=== PATIENT | female | born 1955 | race Caucasian/White ===

== ENCOUNTER 2019-08-24 22:13 | Inpatient (IN) | payer MEDICARE, MEDICAID ==
[2019-08-25] MEDS ORDERED: INSULIN LISPRO SLIDING SCALE 100 UNITS/ML UNIT SUBQ SCH (07:30)
[2019-08-25] MEDS ORDERED: MELOXICAM 15 MG PO PRN (07:33)
[2019-08-25] MEDS ORDERED: Maalox 30 mL Cup PO PRN (07:33)
--- NOTE | 2019-08-25 07:57 | History and Physical ---
History of Present Illness - HPI Chief Complaint: psychosis HPI: 64 y/o female who presents to [facility] from [facility] for medical clearance. Patient is a resident from [facility] and the nursing staff noted increased agitation and a change in the patient's behavior. Patient was found to have a UTI and Acute Bronchitis when evaluated at [facility] ER and was prescribed oral antibiotics. No labwork of Chest Xray accompanied the chart. Patient has a history of DM2, diabetic neuropathy, legally blind, morbid obesity, trigeminal neuralgia, muscle weakness, major depression, GERD. Patient was subsequently admitted for further evaluation and treatment. Vital Signs: Last Vital Signs Temp 97.8 F 08/25/19 07:15 Pulse 93 08/25/19 07:15 Resp 20 08/25/19 07:15 BP 112/89 08/25/19 07:15 Pulse Ox 96 08/25/19 07:15 Past Medical History Cardiovascular: Report: HTN, Hyperlipidemia Pulmonary: Report: Asthma, Bronchitis, Other (allergies) SECURITY PUBLIC SAFETY OFFICER: Report: Peripheral neuropathy, Other (trigeminal neuralgia) GI: Report: Constipation, GERD Psych: Report: Psychosis Musculoskeletal: Report: Osteoarthritis, Other (muscle spasm) Rheumatologic: Report: No pertinent Hx Infectious Disease: Report: No Pertinent Hx Renal/: Report: Urinary Incontinence Endocrine: Report: Diabetes Dermatology: Report: No Pertinent Hx - Past Surgical History Past Surgical History: No pertinent Hx Family Medical History - Family Member Mother History Unknown: Yes Living Status: Sister History Unknown: Yes Ethnicity: Non- Living Status: Still Living Hx Family Cancer: No Hx Family Coronary Artery Disease: No Hx Family Congestive Heart Failure: No Hx Family Hypertension: No Hx Family Stroke: No Hx Family Diabetes: Yes Hx Family Seizures: No Hx Family Dementia: No Hx Family AIDS: No Hx Family HIV: No Hx Family COPD: No Hx Family Hepatitis: No Hx Family Psychiatric Problems: No Hx Family Tuberculosis: No Social History Smoke: No Alcohol: None Drugs: None Lives: Fpc - Medications Home Medications: Home Medication Medication Instructions Recorded Type Atorvastatin Calcium [Lipitor] 10 mg PO HS 07/20/14 History Mag Hydrox/Aluminum Hyd/Simeth 30 ml PO Q6HR PRN 03/27/16 History [Almacone Suspension] Pantoprazole [Protonix] 40 mg PO QDAC #0 ect 03/31/16 Rx Pioglitazone HCl [Actos] 30 mg PO DAILY #0 tab 03/31/16 Rx Sucralfate [Carafate] 1 gm PO QID #0 tab 03/31/16 Rx amLODIPine Besylate [Norvasc] 5 mg PO DAILY #0 tab 03/31/16 Rx Acetaminophen [Tylenol] 650 mg PO Q6HR PRN 08/25/19 History Acetaminophen [Tylenol] 650 mg PO Q6HR PRN 08/25/19 History Carbamazepine [Tegretol Xr] 100 mg PO BID 08/25/19 History Docusate Sodium [Colace] 200 mg PO BID 08/25/19 History Escitalopram Oxalate [Lexapro] 5 mg PO DAILY 08/25/19 History Fluticasone/Salmeterol [Advair 1 puff IH DAILY 08/25/19 History 250-50 Diskus] Gabapentin [Neurontin] 800 mg PO TID 08/25/19 History Gentamicin 0.1% Ointment 0.5 inch EACH EYE BID 08/25/19 History [Gentamicin 0.1%] Guaifenesin DM [Robitussin DM] 5 ml PO QID PRN 08/25/19 History Insulin Detemir [Levemir Insulin] 10 units SUBQ HS 08/25/19 History Insulin Lispro Sliding Scale See Protocol SUBQ ACHS 08/25/19 History [humaLOG INSULIN SLIDING SCALE] Loratadine 10 mg PO DAILY 08/25/19 History Meloxicam [Mobic] 15 mg PO DAILY PRN 08/25/19 History Montelukast [Singulair] 10 mg PO HS 08/25/19 History Pectin [Throat Drops] 1 lozenge PO Q2HR PRN 08/25/19 History Polyvinyl Alcohol Ophth Soln 1 drop EACH EYE BID 08/25/19 History [Artificial Tears Ophth Soln*] Tapentadol HCl [Nucynta] 50 mg PO Q6HR PRN 08/25/19 History Tizanidine HCl 2 mg PO TID 08/25/19 History Tolterodine Tartrate [Detrol LA] 4 mg PO DAILY 08/25/19 History Zolpidem Tartrate [Ambien] 2.5 mg PO HS 08/25/19 History - Allergies Allergies/Adverse Reactions: Allergies Allergy/AdvReac Type Severity Reaction Status Date / Time erythromycin base Allergy Verified 01/02/16 14:27 iodine Allergy Verified 01/02/16 14:27 morphine Allergy Verified 03/27/16 22:02 procaine Allergy Verified 01/02/16 14:27 Review of Systems - Review of Systems Constitutional: Report: No Significant Eyes: Report: No Significant ENT: Report: No Significant Respiratory: Report: No Significant Cardiovascular: Report: No Significant Gastrointestinal: Report: No Significant Genitourinary: Report: No Significant Musculoskeletal: Report: No Significant Skin: Report: No Significant Neurological: Report: No Significant Physical Exam - Physical Exam HEENT: Report: Ears Nose Throat within normal limits, Pharnyx within normal limits Neck: Report: Within normal limits Cardiovascular Systems: Report: +s1/s2 noted, Regular, Rate and Rhythm Respiratory: Report: Wheezing Abdomen: Report: Non-tender to palpation Back: Report: Inspection of back is within normal limits. Extremities: Report: Non-tender to palpation. Skin: Report: Color of skin is within normal limits Neuro/Psych: Report: Mood affect is within normal limits - Lab Results All Lab Results last 24 hours: Laboratory Results - last 24 hr 08/25/19 06:32 POC Glucose 143 H - Assessment Assessment: Psychosis Acute Bronchitis UTI DM2 diabetic neuropathy legally blind morbid obesity trigeminal neuralgia muscle weakness major depression GERD - Plan [facility].
[2019-08-25] MEDS ORDERED: GLUCAGON HCl 1 MG KIT IM PRN (08:20)
[2019-08-25] MEDS ORDERED: Albuterol Nebulizer 2.5mg/3mL HHN PRN (08:22)
[2019-08-25] MEDS ORDERED: Tolterodine Tartrate 4 mg ER Cap PO SCH (09:00)
[2019-08-25] MEDS ORDERED: Escitalopram Oxalate 5 mg Tab PO SCH (09:00)
[2019-08-25] MEDS ORDERED: Non-Formulary Item 1 EA (Fluticasone/Salmeterol [Advair 250-50 Diskus] 1 PUFF) IH SCH (09:00)
[2019-08-25] MEDS: Polyvinyl Alcohol Ophth Soln 15 mL Bottle EACH EYE SCH ×2 (09:43→17:09)
[2019-08-25] MEDS: carBAMazepine 200 mg/10 mL UDC PO SCH ×2 (09:43→17:08)
[2019-08-25] MEDS: Guaifenesin DM 10 ML UDC PO PRN (09:43)
[2019-08-25] MEDS: INSULIN LISPRO SLIDING SCALE 100 UNITS/ML UNIT SUBQ SCH ×3 (11:45→20:35)
[2019-08-25] MEDS: Atorvastatin Calcium 10 MG TAB PO SCH (20:33)
[2019-08-25] MEDS: Insulin Glargine 100 units/ml 10ml Vial SUBQ SCH (20:34)
[2019-08-25] MEDS ORDERED: Non-Formulary Item 1 EA (Insulin Detemir 10 UNITS) SUBQ SCH (21:00)
--- NOTE | 2019-08-26 04:48 | Psychiatric Evaluation ---
DATE OF SERVICE: 08/24/2019 IDENTIFYING DATA: Staff was spoken to. The patient is interviewed. The patient is a 64-year-old woman, resident of [facility]. Information obtained by directly interviewing the patient as well as reviewing the admission papers and they are reliable. JUSTIFICATION FOR HOSPITALIZATION: The patient is admitted here on a voluntary basis in view of her acute depression and thoughts of ending her life. The patient has been reported to be on 5 mg of the Lexapro and the patient could not be contained at a lower level of care. The patient has been having multiple medical problems and the patient has been diagnosed with the diabetes, morbid obesity and gastritis. PHYSICAL EXAMINATION: Has been requested to done by Dr. Pollack. PAST PSYCHIATRIC HISTORY: Details are not known. SOCIAL HISTORY: The patient is a resident of [facility]. SUBSTANCE ABUSE HISTORY: None. PHYSICAL OR SEXUAL ABUSE HISTORY: None. LEGAL PROBLEMS: None at this time. MENTAL STATUS EXAMINATION: The patient is a 64-year-old, looking her stated age, moderately obese, superficially cooperative. The patient is very angry and upset at this time. The patient is stating that she does not know why she is here. The patient is getting easily upset. The patient's staff are reporting that the patient has been noted to be very labile. Psychiatric treatments are not available at this time. The patient is denying any command hallucinations, but the patient has paranoia. She thinks that something is done behind her back. The patient's short and long-term are noted to be fair, but the patient is legally blind at this time and needs total care. DIAGNOSES IMPRESSION: AXIS: Major depressive disorder, recurrent and moderate. PLAN: To continue the patient with the supportive therapy and increase the dose on the Lexapro to 10 mg and follow the patient. JOB# [id number]
[2019-08-26] MEDS: Pantoprazole 40 mg EC Tab PO SCH (06:39)
[2019-08-26] MEDS: INSULIN LISPRO SLIDING SCALE 100 UNITS/ML UNIT SUBQ SCH ×4 (06:40→20:43)
--- NOTE | 2019-08-26 07:59 | General Progress Note ---
Subjective - Review of Systems Service Date: 08/26/19 Subjective: Awake, Alert, no acute distress VS T 97.8 P 97 BP 131/81 R 20 Objective - Results Recent Labs: Laboratory Last Values POC Glucose 175 MG/DL (70 - 105) H 08/26/19 06:06 - Physical Exam Vitals and I&O: Vital Signs Temp 97.8 F 08/26/19 05:57 Pulse 102 08/26/19 05:57 Resp 20 08/26/19 05:57 BP 131/81 08/26/19 05:57 Pulse Ox 98 08/26/19 05:57 Intake & Output 08/25/19 08/26/19 08/26/19 18:59 06:59 18:59 Intake Total 1120 120 Output Total 1 Balance 1120 119 Intake: Oral 1120 120 Output: Urine/Stool Mix 1 Other: # Voids 4 1 # Bowel Movements 1 Active Medications: Current Medications Acetaminophen (Tylenol) 650 mg PO Q6HR PRN PRN Reason: Pain 1-3 (Mild) Stop: 10/24/19 05:02 Last Admin: 08/26/19 06:40 Dose: 650 mg Acetaminophen (Tylenol) 650 mg PO Q6HR PRN PRN Reason: Temperature above 101 Stop: 10/24/19 05:02 Al Hydrox/Mg Hydrox/Simethicone (Maalox) 30 ml PO Q6HR PRN PRN Reason: GI DISTRESS Stop: 10/24/19 07:32 Albuterol Sulfate (Albuterol 2.5mg/3ml Neb Ud) 2.5 mg HHN Q4H PRN PRN Reason: Shortness of Breath or Wheeze Stop: 10/24/19 08:21 Amlodipine Besylate (Norvasc) 5 mg PO DAILY [facility] Stop: 10/24/19 08:59 Last Admin: 08/25/19 09:45 Dose: 5 mg Artificial Tears (Artificial Tears Ophth Soln) 1 drop EACH EYE BID [facility] Stop: 10/24/19 08:59 Last Admin: 08/25/19 17:09 Dose: 1 drop Atorvastatin Calcium (Lipitor) 10 mg PO HS [facility]; Protocol Stop: 10/24/19 20:59 Last Admin: 08/25/19 20:33 Dose: 10 mg Carbamazepine (Tegretol) 100 mg PO BID [facility]; Protocol Stop: 10/24/19 08:59 Last Admin: 08/25/19 17:08 Dose: 100 mg Cephalexin Monohydrate (Keflex) 500 mg PO QID [facility] Stop: 10/24/19 08:59 Last Admin: 08/25/19 20:33 Dose: 500 mg Dextrose (Glutose 40%) 18.75 gm PO PRN PRN PRN Reason: Blood Glucose less than 70 Stop: 10/24/19 08:19 Diclofenac Sodium (Voltaren) 25 mg PO BID PRN PRN Reason: moderate pain Stop: 10/24/19 08:59 Last Admin: 08/25/19 13:01 Dose: 25 mg Docusate Sodium (Colace) 200 mg PO BID [facility] Stop: 10/24/19 08:59 Last Admin: 08/25/19 17:08 Dose: 200 mg Escitalopram Oxalate (Lexapro) 10 mg PO DAILY [facility]; Protocol Stop: 10/25/19 08:59 Gabapentin (Neurontin) 800 mg PO TID [facility] Stop: 10/24/19 08:59 Last Admin: 08/25/19 20:33 Dose: 800 mg Glucagon (Glucagen) 1 mg IM PRN PRN PRN Reason: Blood Glucose less than 70 Stop: 10/24/19 08:19 Guaifenesin/Dextromethorphan (Robitussin Dm) 5 ml PO QID PRN PRN Reason: Cough Stop: 10/24/19 07:32 Last Admin: 08/25/19 09:43 Dose: 5 ml Insulin Glargine (Lantus Insulin) 10 units SUBQ HS [facility] Stop: 10/24/19 20:59 Last Admin: 08/25/19 20:34 Dose: 10 units Insulin Human Lispro (Humalog Insulin Sliding Scale) 0 units SUBQ [facility]; Protocol Stop: 10/24/19 11:29 Last Admin: 08/26/19 06:40 Dose: 2 units Loratadine (Claritin) 10 mg PO DAILY [facility] Stop: 10/24/19 08:59 Last Admin: 08/25/19 09:45 Dose: 10 mg Montelukast Sodium (Singulair) 10 mg PO HS [facility] Stop: 10/24/19 20:59 Last Admin: 08/25/19 20:35 Dose: 10 mg Pantoprazole Sodium (Protonix) 40 mg PO QDAC [facility] Stop: 10/25/19 07:29 Last Admin: 08/26/19 06:39 Dose: 40 mg Pioglitazone HCl (Actos) 15 mg PO DAILY [facility] Stop: 10/24/19 08:59 Last Admin: 08/25/19 09:45 Dose: 15 mg Sucralfate (Carafate) 1 gm PO QID [facility] Stop: 10/24/19 08:59 Last Admin: 08/25/19 20:35 Dose: 1 gm Tolterodine Tartrate (Detrol) 4 mg PO DAILY [facility] Stop: 10/24/19 08:59 Zolpidem Tartrate (Ambien) 2.5 mg PO HS [facility] Stop: 10/24/19 20:59 Last Admin: 08/25/19 20:36 Dose: 2.5 mg General: Alert, No acute distress HEENT: Atraumatic, PERRLA Neck: Supple Cardiovascular: Regular rate, Normal S1, Normal S2 Lungs: Clear to auscultation Abdomen: Bowel sounds Extremities: no Clubbing, no Cyanosis, no Edema Neurological: Normal gait Skin: no Rash Assessment/Plan - Assessment Assessment: Psychosis Acute Bronchitis UTI DM2 diabetic neuropathy legally blind morbid obesity trigeminal neuralgia muscle weakness major depression GERD - Plan Plan: admit to [facility] continue current medications.
[2019-08-26] MEDS: carBAMazepine 200 mg/10 mL UDC PO SCH ×2 (10:08→16:53)
[2019-08-26] MEDS: Polyvinyl Alcohol Ophth Soln 15 mL Bottle EACH EYE SCH ×2 (10:10→16:54)
[2019-08-26] MEDS: Atorvastatin Calcium 10 MG TAB PO SCH (20:42)
[2019-08-26] MEDS: Insulin Glargine 100 units/ml 10ml Vial SUBQ SCH (20:44)
--- NOTE | 2019-08-26 21:58 | Consultation ---
DATE OF CONSULTATION: 08/26/2019 REFERRING PHYSICIAN: Lenny Arias M.D. TYPE OF CONSULTATION: Psychology. REASON FOR CONSULTATION: The patient is known to this advertising copy writer from the [facility]. The referral is made for a Psychology consultation in order to evaluate the patient for suicide ideation and depression as well as to make recommendations based on her mental health disposition. Included in this assessment is whether there are any psychological or behavioral barriers that could potentially complicate her optimal participation in her treatment. HISTORY OF PRESENT ILLNESS: The patient is a 64-year-old single female. The patient is known to this advertising copy writer from [facility] where she is a resident. The patient is being admitted on a voluntary basis due to acute depression as well as verbalizing thoughts of ending her life. The following is by review of the medical record and by the patient's self-report. Upon interview, the patient stated "all my people are gone and have and there is no one left, so I just want to and be with them." The patient admits suicidal ideation, but was not specific about plan. However, the patient admits intention. PAST PSYCHIATRIC HISTORY: The patient has a history of major depression and is under the care of a psychiatrist at her [facility] facility. The patient has been under the care of Lenny Arias MD in the past. The patient also has been treated by this advertising copy writer in the past for Psychology services. The patient also has a history of suicidal ideation, but no past suicide attempts. PAST MEDICAL HISTORY: Please see history and physical by Dr. Pollack. BRIEF PSYCHOSOCIAL HISTORY: The patient is a resident of [facility]. The patient is single and never . She is legally blind. The patient has a long history of major depression, recurrent, severe. The patient's sister apparently a few years ago and the patient has no support or any family left that she can communicate with or are available for support. The patient is stating that she wants to return to [facility]. The patient does not have an occupational history. The patient's education is high school with some other special education and post-graduate from high school, first year college. There are no abuse issues or current legal problems. The patient states that she is a Religion. The patient agrees to return to her placement. SUBSTANCE ABUSE HISTORY: None. There is no history of any alcohol, tobacco or illicit or recreational drug use. MENTAL STATUS EXAMINATION: The patient appears to be her stated age. The patient's attitude is guarded and suspicious. Eye contact is irrelevant as the patient is legally blind. Speech is loud. The patient is yelling at this advertising copy writer, stating that she believes she needs to be at home in the afterlife with all of her family and friends who have passed on. Mood is irritable, depressed and easily upset and frustrated. Affect is mood congruent and labile. Thought process shows perseveration on hopelessness and helplessness and futility. The patient admits suicidal ideation with intention, but no specific plan. The patient denied any auditory or visual hallucinations. The patient's mood continued to be labile throughout the clinical interview. The patient states that she believes there are others at her placement that are making it difficult for her. Suspiciousness needs further evaluation. The patient's behavior is withdrawn, isolative and easily agitated. Impulse control is inadequate. Concentration is poor. Sensorium is alert and oriented to self and place. The patient has difficulty sustaining focus and attention as well as responding to cognitive redirection. The patient was unable to perform the memory assessment. Immediate memory seems to be intact. Short-term memory seems to be somewhat impaired and long-term memory is grossly intact. The patient did not participate in the interpretation of proverbs. The patient is legally blind and needs total care. Insight is poor. Judgment is impaired. DIAGNOSTIC IMPRESSION AXIS I: 1. Major depressive disorder, recurrent, severe by history. 2. Provisional diagnosis of Psychosis, not otherwise specified, or due to medical condition. AXIS II: Deferred. AXIS III: Per Dr. Pollack. TREATMENT PLAN: The patient has been seen by Dr. Murphy for psychiatric evaluation and for the management of the patient's psychotropic medications. The patient is going to be provided supportive psychotherapy at the request of Dr. Lenny Arias to assist the patient in coping with her current circumstances. We will provide suicide prevention. We will encourage the patient on a daily basis and provide opportunities for her to verbally contract for safety, i.e., no self-harm. We encouraged the patient to verbalize her concerns and to talk with staff if she is having suicidal thoughts and to be able to process these. We will continue with suicide prevention and coping strategies for phase of life issues. We will provide de-escalation as needed on the unit. We will also provide bereavement, grief and loss therapy. Thank you, Dr. Arias and Dr. Murphy for this consult and the opportunity to participate in this patient's care. JOB# [id number] MTDD
--- NOTE | 2019-08-27 04:46 | Progress Notes ---
DATE: 08/26/2019 PSYCHIATRIC PROGRESS NOTE SUBJECTIVE: Staff was spoken to. The patient is interviewed. Mood is noted to be irritable. Affect is constricted. The patient's insight and judgment are noted to be still impaired. Impulse control is noted to be limited. The patient's coping skills are noted to be limited. The patient has been having difficult time to cope with the stress. The patient is isolative and withdrawn. The patient is getting easily frustrated. The patient is currently on Lexapro that is being given at 10 mg. PLAN: To continue the patient with his current medications and followup. JOB# [id number]
[2019-08-27] MEDS: Pantoprazole 40 mg EC Tab PO SCH (06:50)
[2019-08-27] MEDS: INSULIN LISPRO SLIDING SCALE 100 UNITS/ML UNIT SUBQ SCH ×4 (07:04→21:33)
--- NOTE | 2019-08-27 08:45 | General Progress Note ---
Subjective - Review of Systems Service Date: 08/27/19 Subjective: Awake, Alert, no acute distress VS T 97.9 P 90 BP 138/89 R 20 Objective - Results Recent Labs: Laboratory Last Values POC Glucose 240 MG/DL (70 - 105) H 08/26/19 19:51 - Physical Exam Vitals and I&O: Vital Signs Temp 97.9 F 08/27/19 06:27 Pulse 90 08/27/19 06:27 Resp 20 08/27/19 06:27 BP 138/89 08/27/19 06:27 Pulse Ox 95 08/27/19 06:27 Intake & Output 08/26/19 08/27/19 08/27/19 18:59 06:59 18:59 Intake Total 850 120 Balance 850 120 Intake: Oral 850 120 Other: # Voids 4 2 # Bowel Movements 2 0 Active Medications: Current Medications Acetaminophen (Tylenol) 650 mg PO Q6HR PRN PRN Reason: Pain 1-3 (Mild) Stop: 10/24/19 05:02 Last Admin: 08/26/19 06:40 Dose: 650 mg Acetaminophen (Tylenol) 650 mg PO Q6HR PRN PRN Reason: Temperature above 101 Stop: 10/24/19 05:02 Al Hydrox/Mg Hydrox/Simethicone (Maalox) 30 ml PO Q6HR PRN PRN Reason: GI DISTRESS Stop: 10/24/19 07:32 Albuterol Sulfate (Albuterol 2.5mg/3ml Neb Ud) 2.5 mg HHN Q4H PRN PRN Reason: Shortness of Breath or Wheeze Stop: 10/24/19 08:21 Amlodipine Besylate (Norvasc) 5 mg PO DAILY [facility] Stop: 10/24/19 08:59 Last Admin: 08/26/19 10:09 Dose: 5 mg Artificial Tears (Artificial Tears Ophth Soln) 1 drop EACH EYE BID [facility] Stop: 10/24/19 08:59 Last Admin: 08/26/19 16:54 Dose: 1 drop Atorvastatin Calcium (Lipitor) 10 mg PO HS [facility]; Protocol Stop: 10/24/19 20:59 Last Admin: 08/26/19 20:42 Dose: 10 mg Carbamazepine (Tegretol) 100 mg PO BID [facility]; Protocol Stop: 10/24/19 08:59 Last Admin: 08/26/19 16:53 Dose: 100 mg Cephalexin Monohydrate (Keflex) 500 mg PO QID [facility] Stop: 10/24/19 08:59 Last Admin: 08/26/19 20:42 Dose: 500 mg Dextrose (Glutose 40%) 18.75 gm PO PRN PRN PRN Reason: BS Below 70 if tolerate po Stop: 10/24/19 08:19 Diclofenac Sodium (Voltaren) 25 mg PO BID PRN PRN Reason: moderate pain Stop: 10/24/19 08:59 Last Admin: 08/27/19 07:04 Dose: 25 mg Docusate Sodium (Colace) 200 mg PO BID [facility] Stop: 10/24/19 08:59 Last Admin: 08/26/19 16:54 Dose: 200 mg Escitalopram Oxalate (Lexapro) 10 mg PO DAILY [facility]; Protocol Stop: 10/25/19 08:59 Last Admin: 08/26/19 10:08 Dose: 10 mg Gabapentin (Neurontin) 800 mg PO TID [facility] Stop: 10/24/19 08:59 Last Admin: 08/26/19 20:41 Dose: 800 mg Glucagon (Glucagen) 1 mg IM PRN PRN PRN Reason: BS Below 70 if not tolerate po Stop: 10/24/19 08:19 Guaifenesin/Dextromethorphan (Robitussin Dm) 5 ml PO QID PRN PRN Reason: Cough Stop: 10/24/19 07:32 Last Admin: 08/25/19 09:43 Dose: 5 ml Insulin Glargine (Lantus Insulin) 10 units SUBQ [facility] Stop: 10/24/19 20:59 Last Admin: 08/26/19 20:44 Dose: 10 units Insulin Human Lispro (Humalog Insulin Sliding Scale) 0 units SUBQ [facility]; Protocol Stop: 10/24/19 11:29 Last Admin: 08/27/19 07:04 Dose: 2 units Loratadine (Claritin) 10 mg PO DAILY [facility] Stop: 10/24/19 08:59 Last Admin: 08/26/19 10:08 Dose: 10 mg Montelukast Sodium (Singulair) 10 mg PO HS [facility] Stop: 10/24/19 20:59 Last Admin: 08/26/19 20:42 Dose: 10 mg Pantoprazole Sodium (Protonix) 40 mg PO QDAC [facility] Stop: 10/25/19 07:29 Last Admin: 08/27/19 06:50 Dose: 40 mg Pioglitazone HCl (Actos) 15 mg PO DAILY [facility] Stop: 10/24/19 08:59 Last Admin: 08/26/19 10:08 Dose: 15 mg Sucralfate (Carafate) 1 gm PO QID [facility] Stop: 10/24/19 08:59 Last Admin: 08/26/19 20:42 Dose: 1 gm Tolterodine Tartrate (Detrol) 4 mg PO DAILY [facility] Stop: 10/24/19 08:59 Last Admin: 08/26/19 10:10 Dose: 4 mg Zolpidem Tartrate (Ambien) 2.5 mg PO HS [facility] Stop: 10/24/19 20:59 Last Admin: 08/26/19 20:42 Dose: 2.5 mg General: Alert, No acute distress HEENT: Atraumatic, PERRLA Neck: Supple Cardiovascular: Regular rate, Normal S1, Normal S2 Lungs: Clear to auscultation Abdomen: Bowel sounds Extremities: no Clubbing, no Cyanosis, no Edema Neurological: Normal gait Skin: no Rash Assessment/Plan - Assessment Assessment: Psychosis Acute Bronchitis UTI DM2 diabetic neuropathy legally blind morbid obesity trigeminal neuralgia muscle weakness major depression GERD - [facility].
[2019-08-27] MEDS: carBAMazepine 200 mg/10 mL UDC PO SCH ×2 (09:27→16:45)
[2019-08-27] MEDS: Polyvinyl Alcohol Ophth Soln 15 mL Bottle EACH EYE SCH ×2 (09:37→17:08)
--- NOTE | 2019-08-27 15:44 | Progress Notes ---
DATE: 08/27/2019 SUBJECTIVE: Staff was spoken to. The patient is interviewed. Mood is noted to be depressed. Affect is constricted. The patient is still suicidal. No homicidal ideation is noted. Coping skills are noted to be very poor. The patient is isolative and withdrawn. The patient's blood work has been noted and her blood sugar is noted to be running very high at 240. The patient is being closely monitored. ASSESSMENT: The patient is still depressed and suicidal. PLAN: To continue the patient with the supportive therapy and followup. JOB# [id number]
[2019-08-27] MEDS: Atorvastatin Calcium 10 MG TAB PO SCH (21:28)
[2019-08-27] MEDS: Insulin Glargine 100 units/ml 10ml Vial SUBQ SCH (21:31)
--- NOTE | 2019-08-28 05:45 | General Progress Note ---
Subjective - Review of Systems Service Date: 08/28/19 Subjective: Awake, Alert, no acute distress VS T 97.2 P 73 BP 97/62 R 20 Objective - Results Recent Labs: Laboratory Last Values POC Glucose 254 MG/DL (70 - 105) H 08/27/19 20:43 - Physical Exam Vitals and I&O: Vital Signs Temp 97.2 F 08/27/19 20:34 Pulse 111 08/27/19 20:34 Resp 20 08/27/19 20:34 BP 97/62 08/27/19 20:34 Pulse Ox 94 08/27/19 20:34 Intake & Output 08/27/19 08/27/19 08/28/19 06:59 18:59 06:59 Intake Total 120 900 240 Balance 120 900 240 Intake: Oral 120 900 240 Other: # Voids 2 3 2 # Bowel Movements 0 0 Active Medications: Current Medications Acetaminophen (Tylenol) 650 mg PO Q6HR PRN PRN Reason: Pain 1-3 (Mild) Stop: 10/24/19 05:02 Last Admin: 08/27/19 12:53 Dose: 650 mg Acetaminophen (Tylenol) 650 mg PO Q6HR PRN PRN Reason: Temperature above 101 Stop: 10/24/19 05:02 Al Hydrox/Mg Hydrox/Simethicone (Maalox) 30 ml PO Q6HR PRN PRN Reason: GI DISTRESS Stop: 10/24/19 07:32 Albuterol Sulfate (Albuterol 2.5mg/3ml Neb Ud) 2.5 mg HHN Q4H PRN PRN Reason: Shortness of Breath or Wheeze Stop: 10/24/19 08:21 Amlodipine Besylate (Norvasc) 5 mg PO DAILY [facility] Stop: 10/24/19 08:59 Last Admin: 08/27/19 09:28 Dose: 5 mg Artificial Tears (Artificial Tears Ophth Soln) 1 drop EACH EYE BID [facility] Stop: 10/24/19 08:59 Last Admin: 08/27/19 17:08 Dose: 1 drop Atorvastatin Calcium (Lipitor) 10 mg PO HS [facility]; Protocol Stop: 10/24/19 20:59 Last Admin: 08/27/19 21:28 Dose: 10 mg Carbamazepine (Tegretol) 100 mg PO BID [facility]; Protocol Stop: 10/24/19 08:59 Last Admin: 08/27/19 16:45 Dose: 100 mg Cephalexin Monohydrate (Keflex) 500 mg PO QID [facility] Stop: 10/24/19 08:59 Last Admin: 08/27/19 21:27 Dose: 500 mg Dextrose (Glutose 40%) 18.75 gm PO PRN PRN PRN Reason: BS Below 70 if tolerate po Stop: 10/24/19 08:19 Diclofenac Sodium (Voltaren) 25 mg PO BID PRN PRN Reason: moderate pain Stop: 10/24/19 08:59 Last Admin: 08/27/19 07:04 Dose: 25 mg Docusate Sodium (Colace) 200 mg PO BID [facility] Stop: 10/24/19 08:59 Last Admin: 08/27/19 16:45 Dose: 200 mg Escitalopram Oxalate (Lexapro) 10 mg PO DAILY [facility]; Protocol Stop: 10/25/19 08:59 Last Admin: 08/27/19 09:30 Dose: 10 mg Gabapentin (Neurontin) 800 mg PO TID [facility] Stop: 10/24/19 08:59 Last Admin: 08/27/19 21:27 Dose: 800 mg Glucagon (Glucagen) 1 mg IM PRN PRN PRN Reason: BS Below 70 if not tolerate po Stop: 10/24/19 08:19 Guaifenesin/Dextromethorphan (Robitussin Dm) 5 ml PO QID PRN PRN Reason: Cough Stop: 10/24/19 07:32 Last Admin: 08/25/19 09:43 Dose: 5 ml Insulin Glargine (Lantus Insulin) 10 units SUBQ HS [facility] Stop: 10/24/19 20:59 Last Admin: 08/27/19 21:31 Dose: 10 units Insulin Human Lispro (Humalog Insulin Sliding Scale) 0 units SUBQ ACHS [facility]; Protocol Stop: 10/24/19 11:29 Last Admin: 08/27/19 21:33 Dose: 6 units Loratadine (Claritin) 10 mg PO DAILY [facility] Stop: 10/24/19 08:59 Last Admin: 08/27/19 09:28 Dose: 10 mg Montelukast Sodium (Singulair) 10 mg PO [facility] Stop: 10/24/19 20:59 Last Admin: 08/27/19 21:28 Dose: 10 mg Pantoprazole Sodium (Protonix) 40 mg PO QDAC [facility] Stop: 10/25/19 07:29 Last Admin: 08/27/19 06:50 Dose: 40 mg Pioglitazone HCl (Actos) 15 mg PO DAILY [facility] Stop: 10/24/19 08:59 Last Admin: 08/27/19 09:44 Dose: 15 mg Sucralfate (Carafate) 1 gm PO QID [facility] Stop: 10/24/19 08:59 Last Admin: 08/27/19 21:27 Dose: 1 gm Tolterodine Tartrate (Detrol) 4 mg PO DAILY [facility] Stop: 10/24/19 08:59 Last Admin: 08/27/19 09:35 Dose: 4 mg Zolpidem Tartrate (Ambien) 2.5 mg PO HS [facility] Stop: 10/24/19 20:59 Last Admin: 08/27/19 21:28 Dose: 2.5 mg General: Alert, No acute distress HEENT: Atraumatic, PERRLA Neck: Supple Cardiovascular: Regular rate, Normal S1, Normal S2 Lungs: Clear to auscultation Abdomen: Bowel sounds Extremities: no Clubbing, no Cyanosis, no Edema Neurological: Normal gait Skin: no Rash Assessment/Plan - Assessment Assessment: Psychosis Acute Bronchitis UTI DM2 diabetic neuropathy legally blind morbid obesity trigeminal neuralgia muscle weakness major depression GERD - Plan Plan: admit to [facility] continue current medications. increase Pioglitazone to 30mg daily
[2019-08-28] MEDS: INSULIN LISPRO SLIDING SCALE 100 UNITS/ML UNIT SUBQ SCH ×4 (06:49→20:53)
[2019-08-28] MEDS: Pantoprazole 40 mg EC Tab PO SCH (06:49)
[2019-08-28] MEDS: carBAMazepine 200 mg/10 mL UDC PO SCH ×2 (09:01→17:13)
[2019-08-28] MEDS: Polyvinyl Alcohol Ophth Soln 15 mL Bottle EACH EYE SCH ×2 (09:06→17:14)
[2019-08-28] MEDS: Guaifenesin DM 10 ML UDC PO PRN (11:49)
--- NOTE | 2019-08-28 15:23 | Progress Notes ---
DATE: 08/28/2019 PSYCHIATRIC PROGRESS NOTE SUBJECTIVE: Staff was spoken to. The patient is interviewed. Mood is noted to be irritable. Affect is constricted. Insight and judgment are noted to be still impaired. Impulse control is noted to be limited. The patient has been admitting that she mentioned that she wanted to hurt herself. Now, she states that she is feeling much better and states that there is no reason for her to be in here and she needs to be discharged. Coping skills are noted to be very poor. Insight and judgment are noted to be very much impaired. No side effects to medications are noted. The patient's blood work is being closely monitored and glucose is the one that has been running very, very high. ASSESSMENT: The patient is still impulsive. PLAN: To continue the patient with the supportive therapy, encouraged the patient to verbalize the concerns rather than to act out. JOB# [id number]
[2019-08-28] MEDS: Atorvastatin Calcium 10 MG TAB PO SCH (20:50)
[2019-08-28] MEDS: Insulin Glargine 100 units/ml 10ml Vial SUBQ SCH (20:54)
[2019-08-29] MEDS: Pantoprazole 40 mg EC Tab PO SCH (06:34)
[2019-08-29] MEDS: INSULIN LISPRO SLIDING SCALE 100 UNITS/ML UNIT SUBQ SCH ×4 (06:34→20:51)
--- NOTE | 2019-08-29 08:14 | General Progress Note ---
Subjective - Review of Systems Service Date: 08/29/19 Subjective: Awake, Alert, no acute distress VS T 97.2 P 73 BP 97/62 R 20 Objective - Results Recent Labs: Laboratory Last Values POC Glucose 151 MG/DL (70 - 105) H 08/29/19 05:55 - Physical Exam Vitals and I&O: Vital Signs Temp 97.5 F 08/29/19 05:55 Pulse 101 08/29/19 05:55 Resp 19 08/29/19 05:55 BP 122/98 08/29/19 05:55 Pulse Ox 93 08/29/19 05:55 Intake & Output 08/28/19 08/29/19 08/29/19 18:59 06:59 18:59 Intake Total 360 Balance 360 Intake: Oral 360 Other: # Voids 1 # Bowel Movements 1 Active Medications: Current Medications Acetaminophen (Tylenol) 650 mg PO Q6HR PRN PRN Reason: Pain 1-3 (Mild) Stop: 10/24/19 05:02 Last Admin: 08/28/19 17:16 Dose: 650 mg Acetaminophen (Tylenol) 650 mg PO Q6HR PRN PRN Reason: Temperature above 101 Stop: 10/24/19 05:02 Al Hydrox/Mg Hydrox/Simethicone (Maalox) 30 ml PO Q6HR PRN PRN Reason: GI DISTRESS Stop: 10/24/19 07:32 Albuterol Sulfate (Albuterol 2.5mg/3ml Neb Ud) 2.5 mg HHN Q4H PRN PRN Reason: Shortness of Breath or Wheeze Stop: 10/24/19 08:21 Amlodipine Besylate (Norvasc) 5 mg PO DAILY [facility] Stop: 10/24/19 08:59 Last Admin: 08/28/19 09:02 Dose: 5 mg Artificial Tears (Artificial Tears Ophth Soln) 1 drop EACH EYE BID [facility] Stop: 10/24/19 08:59 Last Admin: 08/28/19 17:14 Dose: 1 drop Atorvastatin Calcium (Lipitor) 10 mg PO HS [facility]; Protocol Stop: 10/24/19 20:59 Last Admin: 08/28/19 20:50 Dose: 10 mg Carbamazepine (Tegretol) 100 mg PO BID [facility]; Protocol Stop: 10/24/19 08:59 Last Admin: 01/26/20 17:13 Dose: 100 mg Cephalexin Monohydrate (Keflex) 500 mg PO QID [facility] Stop: 10/24/19 08:59 Last Admin: 08/28/19 20:49 Dose: 500 mg Dextrose (Glutose 40%) 18.75 gm PO PRN PRN PRN Reason: BS Below 70 if tolerate po Stop: 10/24/19 08:19 Diclofenac Sodium (Voltaren) 25 mg PO BID PRN PRN Reason: moderate pain Stop: 10/24/19 08:59 Last Admin: 08/28/19 09:08 Dose: 25 mg Docusate Sodium (Colace) 200 mg PO BID [facility] Stop: 10/24/19 08:59 Last Admin: 08/28/19 17:13 Dose: 200 mg Escitalopram Oxalate (Lexapro) 10 mg PO DAILY [facility]; Protocol Stop: 10/25/19 08:59 Last Admin: 08/28/19 09:04 Dose: 10 mg Gabapentin (Neurontin) 800 mg PO TID [facility] Stop: 10/24/19 08:59 Last Admin: 08/28/19 20:50 Dose: 800 mg Glucagon (Glucagen) 1 mg IM PRN PRN PRN Reason: BS Below 70 if not tolerate po Stop: 10/24/19 08:19 Guaifenesin/Dextromethorphan (Robitussin Dm) 5 ml PO QID PRN PRN Reason: Cough Stop: 10/24/19 07:32 Last Admin: 08/28/19 11:49 Dose: 5 ml Insulin Glargine (Lantus Insulin) 10 units SUBQ HS [facility] Stop: 10/24/19 20:59 Last Admin: 08/28/19 20:54 Dose: 10 units Insulin Human Lispro (Humalog Insulin Sliding Scale) 0 units SUBQ ACHS [facility]; Protocol Stop: 10/24/19 11:29 Last Admin: 08/29/19 06:34 Dose: 2 units Loratadine (Claritin) 10 mg PO DAILY [facility] Stop: 10/24/19 08:59 Last Admin: 08/28/19 09:05 Dose: 10 mg Montelukast Sodium (Singulair) 10 mg PO HS [facility] Stop: 10/24/19 20:59 Last Admin: 08/28/19 20:50 Dose: 10 mg Pantoprazole Sodium (Protonix) 40 mg PO QDAC [facility] Stop: 10/25/19 07:29 Last Admin: 08/29/19 06:34 Dose: 40 mg Pioglitazone HCl (Actos) 30 mg PO DAILY [facility] Stop: 10/27/19 08:59 Last Admin: 08/28/19 09:05 Dose: 30 mg Sucralfate (Carafate) 1 gm PO QID [facility] Stop: 10/24/19 08:59 Last Admin: 08/28/19 20:50 Dose: 1 gm Tolterodine Tartrate (Detrol) 4 mg PO DAILY [facility] Stop: 10/24/19 08:59 Last Admin: 08/28/19 09:06 Dose: 4 mg Zolpidem Tartrate (Ambien) 2.5 mg PO HS [facility] Stop: 10/24/19 20:59 Last Admin: 08/28/19 20:50 Dose: 2.5 mg General: Alert, No acute distress HEENT: Atraumatic, PERRLA Neck: Supple Cardiovascular: Regular rate, Normal S1, Normal S2 Lungs: Clear to auscultation Abdomen: Bowel sounds Extremities: no Clubbing, no Cyanosis, no Edema Neurological: Normal gait Skin: no Rash Assessment/Plan - Assessment Assessment: Psychosis Acute Bronchitis UTI DM2 diabetic neuropathy legally blind morbid obesity trigeminal neuralgia muscle weakness major depression GERD - Plan Plan: admit to [facility] continue current medications. increase Pioglitazone to 30mg daily Nutritional Asmnt/Malnutr-PDOC - Dietary Evaluation Malnutrition Findings (Please click <Entered> for more info): Nutritional Asmnt/Malnutrition Start: 08/28/19 11: 25 Text: Status: Complete Freq: Protocol: Document 08/28/19 11:25 AMAYA (Rec: 08/28/19 11:28 [email or web address]) Nutritional Asmnt/Malnutrition Patient General Information Nutritional Screening Moderate Risk Diagnosis Psychosis Pertinent Medical Hx/Surgical Hx DMT2, Diabetic neuropathy, legally blind, morbid obesity, trigeminal neuralgia, muscle weakness, major depression, GERD Subjective Information Pt is a 58-year-old female admitted on 08/20 d/t increased agitation and a change in behavior. Pt is eating an estimated 90% of meals Per Meal/Nutrition Activity Record . Dietary is currently providing an estimated 1800 kcals and 90 gm Pro, per Pt PO intake this is providing an estimated 1600 kcals and 80gm Pro to meet 100+% kcal and 100 +% Pro needs. Visited pt today after breakfast. Recorded food preferences and explained to pt why is not receiving juice. She stated she was hungry, got her a sandwich and water. Pt stated that the nursing facility she came from gives her juice when I stated her A1c was high. Will continue to monitor PO intake and weight, gradual weight loss (0.5-1 LB/week) trending toward IBW recommended. Anthropometrics HT: 51 WT: 226 LB (102.27 kg) ABW: 135 LB (61.48 kg) BMI: 42.70 (Obese, class III) GI/ Skin Integrity GI: WNL, Soft, Non-tender, Large BM: 08/26 x2 I/O: 1140/Not Noted Skin: WNL, Intact Yo: 19 Diet Order: Mechanical Soft, NCS, PATSY, No Lactose Estimated Energy Needs: ( Geriatric, ABW) 2102-8564 kcals (20-25 kcals/ kg) 50-60g Pro (0.8-1.0 g/kg) 9110-5894 ml (25-30 ml/kg) Current Diet Order/ Nutrition Support Mechanical Soft, NCS, PATSY, No Lactose Pertinent Medications Maalox (PRN), Albuterol (PRN), Lipitor, Glutose 40% (PRN), Colace, Glucagen, INS-SS, Lantus, Tegretol, Protonix, Actos Pertinent Labs POC Glucose (last 24 hours): 197, 254, 178 08/24: A1c 8.7% Nutritional Hx/Data Height 1.55 m Height (Calculated Centimeters) 154.9 Current Weight (lbs) 102.512 kg Weight (Calculated Kilograms) 102.5 Weight (Calculated Grams) 585896.9 [place] Body Weight 105 LB (47.73 kg) % [place] Body Weight 215 Body Mass Index (BMI) 42.7 Weight Status Morbidly Obese GI Symptoms Last BM BM: 08/26 x2 Skin Integrity/Comment: Skin: WNL, Intact Yo: 19 Current %PO Good (75-100%) Estimated Nutritional Goals BEE in Kcals: Adj wt of IBW Calories/Kcals/Kg 20-25 Kcals Calculated 8972-2569 Protein: Adj wt of IBW Protein g/k.8-1.0 Protein Calculated 50-60 Fluid: ml 0322-9173 ml (25-30 ml/kg) Nutritional Problem 2. Problem Problem Impaired nutrient utilization Etiology r/t endocrine dysfunction Signs/Symptoms: aeb labs (08/24) A1c 8.7%. 1. Problem Problem Morbid Obesity Etiology r/t consistent energy overconsumption Signs/Symptoms: aeb BMI> 40. Malnutrition Related to Morbid Obesity Malnutrition related to morbid obesity BMI> or equal to 40 Query Text:(Any 1 Criteria met) Malnutrition related to morbid obesity Yes Intervention/Recommendation Comments 1.Continue Mechanical Soft, NCS, PATSY, No Lactose diet as tolerated. 2.Continue antihyperglycemic medications for glucose control per MD order. Expected Outcomes/Goals Expected Outcomes/Goals 1.PO intake to continue to meet >75% of estimated nutritional needs. 2.Monitor PO intake, wt, nutrition related labs, and skin integrity. 3.Gradual weight loss (0.5-1 LB/week) trending toward IBW. 4.F/U as moderate risk in 3-5 days, 08/31-09/02
[2019-08-29] MEDS: carBAMazepine 200 mg/10 mL UDC PO SCH ×2 (08:35→17:08)
[2019-08-29] MEDS: Polyvinyl Alcohol Ophth Soln 15 mL Bottle EACH EYE SCH ×2 (08:35→17:08)
[2019-08-29] MEDS: Atorvastatin Calcium 10 MG TAB PO SCH (20:47)
[2019-08-29] MEDS: Insulin Glargine 100 units/ml 10ml Vial SUBQ SCH (20:49)
--- NOTE | 2019-08-30 02:16 | Progress Notes ---
DATE: 08/29/2019 PSYCHIATRIC PROGRESS NOTE SUBJECTIVE: Staff was spoken to. The patient is interviewed. Mood is noted to be dysphoric. Coping skills are noted to be still poor. Insight and judgment are noted to be still impaired. Impulse control is noted to be limited. The patient has been having difficult time to cope with the stress. The patient is still very angry and upset for being in here. The patient has been having difficult time to cope with the stress. No side effects to the medications are noted at this time. The patient is currently on escitalopram 10 mg for her depression. The patient has been able to tolerate. PLAN: To closely monitor the patient. I encouraged the patient to verbalize the concerns rather than to act out. JOB# [id number]
[2019-08-30] MEDS: Pantoprazole 40 mg EC Tab PO SCH (06:43)
[2019-08-30] MEDS: INSULIN LISPRO SLIDING SCALE 100 UNITS/ML UNIT SUBQ SCH ×2 (06:43→12:58)
--- NOTE | 2019-08-30 08:14 | General Progress Note ---
Subjective - Review of Systems Service Date: 08/30/19 Subjective: Awake, Alert, no acute distress VS T 97.1 P 75 BP 124/74 R 18 Objective - Results Recent Labs: Laboratory Last Values POC Glucose 160 MG/DL (70 - 105) H 08/30/19 06:23 - Physical Exam Vitals and I&O: Vital Signs Temp 97.1 F 08/30/19 06:45 Pulse 75 08/30/19 06:45 Resp 18 08/30/19 08:00 BP 124/74 08/30/19 06:45 Pulse Ox 98 08/30/19 06:45 Intake & Output 08/29/19 08/30/19 08/30/19 18:59 06:59 18:59 Intake Total 1000 240 Output Total 1 Balance 1000 239 Intake: Oral 1000 240 Output: Urine/Stool Mix 1 Other: # Voids 4 1 # Bowel Movements 1 1 Active Medications: Current Medications Acetaminophen (Tylenol) 650 mg PO Q6HR PRN PRN Reason: Pain 1-3 (Mild) Stop: 10/24/19 05:02 Last Admin: 08/30/19 04:46 Dose: 650 mg Acetaminophen (Tylenol) 650 mg PO Q6HR PRN PRN Reason: Temperature above 101 Stop: 10/24/19 05:02 Al Hydrox/Mg Hydrox/Simethicone (Maalox) 30 ml PO Q6HR PRN PRN Reason: GI DISTRESS Stop: 10/24/19 07:32 Albuterol Sulfate (Albuterol 2.5mg/3ml Neb Ud) 2.5 mg HHN Q4H PRN PRN Reason: Shortness of Breath or Wheeze Stop: 10/24/19 08:21 Amlodipine Besylate (Norvasc) 5 mg PO DAILY [facility] Stop: 10/24/19 08:59 Last Admin: 08/29/19 08:36 Dose: 5 mg Artificial Tears (Artificial Tears Ophth Soln) 1 drop EACH EYE BID [facility] Stop: 10/24/19 08:59 Last Admin: 08/29/19 17:08 Dose: 1 drop Atorvastatin Calcium (Lipitor) 10 mg PO HS [facility]; Protocol Stop: 10/24/19 20:59 Last Admin: 08/29/19 20:47 Dose: 10 mg Carbamazepine (Tegretol) 100 mg PO BID [facility]; Protocol Stop: 10/24/19 08:59 Last Admin: 08/29/19 17:08 Dose: 100 mg Cephalexin Monohydrate (Keflex) 500 mg PO QID [facility] Stop: 10/24/19 08:59 Last Admin: 08/29/19 20:47 Dose: 500 mg Dextrose (Glutose 40%) 18.75 gm PO PRN PRN PRN Reason: BS Below 70 if tolerate po Stop: 10/24/19 08:19 Diclofenac Sodium (Voltaren) 25 mg PO BID PRN PRN Reason: moderate pain Stop: 10/24/19 08:59 Last Admin: 08/29/19 13:24 Dose: 25 mg Docusate Sodium (Colace) 200 mg PO BID [facility] Stop: 10/24/19 08:59 Last Admin: 08/29/19 17:07 Dose: 200 mg Escitalopram Oxalate (Lexapro) 10 mg PO DAILY [facility]; Protocol Stop: 10/25/19 08:59 Last Admin: 08/29/19 08:37 Dose: 10 mg Gabapentin (Neurontin) 800 mg PO TID [facility] Stop: 10/24/19 08:59 Last Admin: 08/29/19 20:47 Dose: 800 mg Glucagon (Glucagen) 1 mg IM PRN PRN PRN Reason: BS Below 70 if not tolerate po Stop: 10/24/19 08:19 Guaifenesin/Dextromethorphan (Robitussin Dm) 5 ml PO QID PRN PRN Reason: Cough Stop: 10/24/19 07:32 Last Admin: 08/28/19 11:49 Dose: 5 ml Insulin Glargine (Lantus Insulin) 10 units SUBQ [facility] Stop: 10/24/19 20:59 Last Admin: 08/29/19 20:49 Dose: 10 units Insulin Human Lispro (Humalog Insulin Sliding Scale) 0 units SUBQ [facility]; Protocol Stop: 10/24/19 11:29 Last Admin: 08/30/19 06:43 Dose: 2 units Loratadine (Claritin) 10 mg PO DAILY [facility] Stop: 10/24/19 08:59 Last Admin: 08/29/19 08:36 Dose: 10 mg Montelukast Sodium (Singulair) 10 mg PO [facility] Stop: 10/24/19 20:59 Last Admin: 08/29/19 20:47 Dose: 10 mg Pantoprazole Sodium (Protonix) 40 mg PO QDAC [facility] Stop: 10/25/19 07:29 Last Admin: 08/30/19 06:43 Dose: 40 mg Pioglitazone HCl (Actos) 30 mg PO DAILY [facility] Stop: 10/27/19 08:59 Last Admin: 08/29/19 08:37 Dose: 30 mg Sucralfate (Carafate) 1 gm PO QID [facility] Stop: 10/24/19 08:59 Last Admin: 08/29/19 20:47 Dose: 1 gm Tolterodine Tartrate (Detrol) 4 mg PO DAILY [facility] Stop: 10/24/19 08:59 Last Admin: 08/29/19 08:36 Dose: 4 mg Zolpidem Tartrate (Ambien) 2.5 mg PO HS [facility] Stop: 10/24/19 20:59 Last Admin: 08/29/19 20:48 Dose: 2.5 mg General: Alert, No acute distress HEENT: Atraumatic, PERRLA Neck: Supple Cardiovascular: Regular rate, Normal S1, Normal S2 Lungs: Clear to auscultation Abdomen: Bowel sounds Extremities: no Clubbing, no Cyanosis, no Edema Neurological: Normal gait Skin: no Rash Assessment/Plan - Assessment Assessment: Psychosis Acute Bronchitis UTI DM2 diabetic neuropathy legally blind morbid obesity trigeminal neuralgia muscle weakness major depression GERD - Plan Plan: admit to [facility] continue current medications. increase Pioglitazone to 30mg daily Nutritional Asmnt/Malnutr-PDOC - Dietary Evaluation Malnutrition Findings (Please click <Entered> for more info): Nutritional Asmnt/Malnutrition Start: 08/28/19 11: 25 Text: Status: Complete Freq: Protocol: Document 08/28/19 11:25 AMAYA (Rec: 08/28/19 11:28 AMAYA [email or web address]) Nutritional Asmnt/Malnutrition Patient General Information Nutritional Screening Moderate Risk Diagnosis Psychosis Pertinent Medical Hx/Surgical Hx DMT2, Diabetic neuropathy, legally blind, morbid obesity, trigeminal neuralgia, muscle weakness, major depression, GERD Subjective Information Pt is a 58-year-old female admitted on 08/20 d/t increased agitation and a change in behavior. Pt is eating an estimated 90% of meals Per Meal/Nutrition Activity Record . Dietary is currently providing an estimated 1800 kcals and 90 gm Pro, per Pt PO intake this is providing an estimated 1600 kcals and 80gm Pro to meet 100+% kcal and 100 +% Pro needs. Visited pt today after breakfast. Recorded food preferences and explained to pt why is not receiving juice. She stated she was hungry, got her a sandwich and water. Pt stated that the nursing facility she came from gives her juice when I stated her A1c was high. Will continue to monitor PO intake and weight, gradual weight loss (0.5-1 LB/week) trending toward IBW recommended. Anthropometrics HT: 51 WT: 226 LB (102.27 kg) ABW: 135 LB (61.48 kg) BMI: 42.70 (Obese, class III) GI/ Skin Integrity GI: WNL, Soft, Non-tender, Large BM: 08/26 x2 I/O: 1140/Not Noted Skin: WNL, Intact Yo: 19 Diet Order: Mechanical Soft, NCS, PATSY, No Lactose Estimated Energy Needs: ( Geriatric, ABW) 9950-0745 kcals (20-25 kcals/ kg) 50-60g Pro (0.8-1.0 g/kg) 7282-8160 ml (25-30 ml/kg) Current Diet Order/ Nutrition Support Mechanical Soft, NCS, PATSY, No Lactose Pertinent Medications Maalox (PRN), Albuterol (PRN), Lipitor, Glutose 40% (PRN), Colace, Glucagen, INS-SS, Lantus, Tegretol, Protonix, Actos Pertinent Labs POC Glucose (last 24 hours): 197, 254, 178 08/24: A1c 8.7% Nutritional Hx/Data Height 1.55 m Height (Calculated Centimeters) 154.9 Current Weight (lbs) 102.512 kg Weight (Calculated Kilograms) 102.5 Weight (Calculated Grams) 039037.9 [place] Body Weight 105 LB (47.73 kg) % [place] Body Weight 215 Body Mass Index (BMI) 42.7 Weight Status Morbidly Obese GI Symptoms Last BM BM: 08/26 x2 Skin Integrity/Comment: Skin: WNL, Intact Yo: 19 Current %PO Good (75-100%) Estimated Nutritional Goals BEE in Kcals: Adj wt of IBW Calories/Kcals/Kg 20-25 Kcals Calculated 8249-2194 Protein: Adj wt of IBW Protein g/k.8-1.0 Protein Calculated 50-60 Fluid: ml 2029-8799 ml (25-30 ml/kg) Nutritional Problem 2. Problem Problem Impaired nutrient utilization Etiology r/t endocrine dysfunction Signs/Symptoms: aeb labs (08/24) A1c 8.7%. 1. Problem Problem Morbid Obesity Etiology r/t consistent energy overconsumption Signs/Symptoms: aeb BMI> 40. Malnutrition Related to Morbid Obesity Malnutrition related to morbid obesity BMI> or equal to 40 Query Text:(Any 1 Criteria met) Malnutrition related to morbid obesity Yes Intervention/Recommendation Comments 1.Continue Mechanical Soft, NCS, PATSY, No Lactose diet as tolerated. 2.Continue antihyperglycemic medications for glucose control per MD order. Expected Outcomes/Goals Expected Outcomes/Goals 1.PO intake to continue to meet >75% of estimated nutritional needs. 2.Monitor PO intake, wt, nutrition related labs, and skin integrity. 3.Gradual weight loss (0.5-1 LB/week) trending toward IBW. 4.F/U as moderate risk in 3-5 days, 08/31-09/02
[2019-08-30] MEDS: Polyvinyl Alcohol Ophth Soln 15 mL Bottle EACH EYE SCH (09:31)
[2019-08-30] MEDS: carBAMazepine 200 mg/10 mL UDC PO SCH (09:33)
--- NOTE | 2019-08-30 23:02 | Progress Notes ---
DATE: 08/29/2019 PSYCHOLOGY PROGRESS NOTE SUBJECTIVE: The patient is seen in her room. The patient is lying down in bed and is sleeping. She is somnolent, but arousable by touch only. The patient did not respond to verbal stimuli initially. The patient states that she still is depressed and still feels as though she should not be alive and that there is no reason for her to continue living. The patient is extremely upset and easily agitated and angry about being hospitalized. She became quite loud and was difficult to de-escalate. The patient is blaming the staff at her facility. Staff reports the patient has been taking her medication. Appetite is poor. The patient is only finishing approximately 20% of her meals. Sleep is excessive. OBJECTIVE: Mood is irritable and depressed. Affect is labile and tearful with yelling episodes and crying episodes. The patient's thought process includes perseveration on feeling hopeless, helpless and purposelessness for living. The patient has suicidal ideation that is passive with no plan. The patient is withdrawn and isolative and is not participating in the milieu therapy; however, the patient is taking her medications. ASSESSMENT: The patient's depression as well as bereavement with loss of family members persist. PLAN: We will continue bereavement therapy as well as cognitive behavioral therapy to reduce the patient's depression. We will continue to provide daily opportunities for the patient to verbally contract for safety and no self-harm. We will provide remotivation for the patient to become compliant and stay compliant with all aspects of her care and treatment. We will provide coping strategies and grief/loss therapy to assist the patient in adjusting to her current circumstances and this phase of life as well as those issues involved. We will follow up in 2-3 days to continue the present treatment. JOB# [id number] [place]
== END 2019-08-30 14:15 | DRG 885 ==
LOC: GERO 23:50
PROVIDERS: ADMIT Psychiatry & Neurology Psychiatry; ATTEND Psychiatry & Neurology Psychiatry
DX: F33.1 Major depressive disorder, recurrent, moderate (principal); N39.0 Urinary tract infection, site not specified; Z68.41 Body mass index [BMI] 40.0-44.9, adult; F29 Unspecified psychosis not due to a substance or known physiological condition; J20.9 Acute bronchitis, unspecified; E11.40 Type 2 diabetes mellitus with diabetic neuropathy, unspecified; E66.01 Morbid (severe) obesity due to excess calories; G50.0 Trigeminal neuralgia; K21.9 Gastro-esophageal reflux disease without esophagitis; H54.8 Legal blindness, as defined in USA; E78.5 Hyperlipidemia, unspecified; I10 Essential (primary) hypertension; J45.909 Unspecified asthma, uncomplicated; M19.90 Unspecified osteoarthritis, unspecified site; Z79.4 Long term (current) use of insulin
CPT/HCPCS: 82948-90; 83036-90; J1815; Z7610